=== PATIENT | female | born 1980 | race Caucasian/White ===

== ENCOUNTER 2019-02-14 18:33 | Emergency (ER) | payer MEDICAID ==
[~2019-02-14] VITALS: Ht 154.9 cm; Wt 50.9 kg
[2019-02-14 18:39] VITALS: Ht 154.9 cm; Wt 50.9 kg
[2019-02-14] MEDS ORDERED: VOLTAREN75 MG PO (19:36)
[2019-02-14] MEDS ORDERED: BACLOFEN20 M1 PO (19:36)
[2019-02-14 19:56] VITALS: BP 128/68
== END 2019-02-14 19:57 | disposition home or self-care (01) ==
LOC: D.ER 18:33
DX: M62.838 Other muscle spasm (principal); S16.1XXA Strain of muscle, fascia and tendon at neck level, initial encounter; X58.XXXA Exposure to other specified factors, initial encounter; F17.290 Nicotine dependence, other tobacco product, uncomplicated